=== PATIENT | female | born 1970 | race Caucasian/White ===

== ENCOUNTER 2024-10-09 17:00 | Outpatient (RCR) | payer BC | END 2024-10-10 | LOC: PT 17:00 | PROVIDERS: ATTEND Otolaryngology | DX: R42 Dizziness and giddiness (principal) ==

== ENCOUNTER 2024-10-25 14:56 | Outpatient (RCR) | payer BC | END 2024-11-10 | LOC: PT 14:56 | PROVIDERS: ATTEND Otolaryngology | DX: R42 Dizziness and giddiness (principal) ==